=== PATIENT | female | born 1990 | race Caucasian/White ===

== ENCOUNTER 2016-12-31 10:10 | Observation (INO) | payer OTHER ==
[2016-12-31 10:17] VITALS: TEMP 97.6
[2016-12-31 11:08] LABS: BASO % 0.8 % (0.0-2.0); EOS # 0.1 K/uL (0.0-0.7); HEMATOCRIT 31.7 % (34.0-47.0); LYMPH # 0.6 K/uL (1.0-4.3); LYMPH % 18.5 % (20.0-40.0); MEAN CORPUSCULAR HEMOGLOBIN 27.8 pg (27.0-31.0); MEAN PLATELET VOLUME 7.1 fL (7.2-11.7); MONO # 0.3 K/uL (0.0-0.8); MONO % 8.5 % (0.0-10.0); RED CELL DISTRIBUTION WIDTH 14.9 % (11.5-14.5); WHITE BLOOD COUNT 3.3 K/uL (4.8-10.8)
[2016-12-31 11:19] LABS: CHLORIDE 98 mmol/L (98-107)
[2016-12-31 11:20] LABS: POTASSIUM 4.1 mmol/L (3.6-5.2); SODIUM 135 mmol/L (132-148)
[2016-12-31 11:22] LABS: ALB/GLOB RATIO 1.5 (1.0-2.1); AST/SGOT 28 U/L (14-36); BILIRUBIN,TOTAL 0.2 mg/dL (0.2-1.3); BLOOD UREA NITROGEN 3 mg/dL (7-17); CARBON DIOXIDE 26 mmol/L (22-30); GFR AFRICAN-AMERICAN > 60; TOTAL PROTEIN 7.3 g/dL (6.3-8.3)
[2016-12-31 11:23] LABS: ALKALINE PHOSPHATASE 93 U/L (38-126); ALT/SGPT 19 U/L (9-52); CALCIUM 8.8 mg/dl (8.6-10.4); GLUCOSE,RANDOM 74 mg/dL (65-105)
[2016-12-31 11:39] LABS: RBC URINE < 1 /hpf (0-3); URINE BILIRUBIN NEGATIVE (NEGATIVE); URINE BLOOD NEGATIVE (NEGATIVE); URINE COLOR Colorless (YELLOW); URINE GLUCOSE (UA) NORMAL (Normal); URINE KETONE NEGATIVE (NEGATIVE); URINE LEUKOCYTE ESTERASE NEG Leu/uL (Negative); URINE PROTEIN NEGATIVE (NEGATIVE); URINE UROBILINOGEN NORMAL mg/dL (0.2-1.0)
--- NOTE | 2016-12-31 11:58 | RAD ---
PROCEDURE: Obstructive series dated 12/31/2016 HISTORY: abd pain COMPARISON: No prior study available for comparison TECHNIQUE: Frontal view of the chest and erect/supine views of the abdomen FINDINGS: No acute infiltrate or effusion. Lung multani are clear without focal consolidation. No apparent pneumothorax. No free air seen below the hemidiaphragms. Moderate amount of stool is present throughout the colon consistent with significant constipation/ fecal retention. Minor degenerative changes of the lower lumbar spine IMPRESSION: Findings consistent with significant constipation. No acute cardiopulmonary disease.
[2016-12-31] MEDS ORDERED: Iohexol 240 (50 ml) PO ONE (12:13)
[2016-12-31] MEDS ORDERED: Iohexol 240 (50 ml) ONE (12:22)
--- NOTE | 2016-12-31 12:37 | C.PDOC ---
History Of Present Illness 26-year-old female, presents to the emergency department with complaints of constipation and abdominal pain that started two weeks ago and is associated with mild nausea. Patient was seen twice by her PMD, and given medication that she has been taking w/ minimal relief. Denies nausea/vomiting, diarrhea, fevers , chills, shortness of breath, chest pain or any other associated symptoms. No other complaints at this time. Chief Complaint (Nursing): Abdominal Pain History Per: Patient History/Exam Limitations: no limitations Past Medical History Reviewed: Historical Data, Nursing Documentation, Vital Signs Vital Signs: Last Vital Signs Temp 97.6 F 12/31/16 10:15 Pulse 58 L 12/31/16 10:15 Resp 15 12/31/16 10:15 BP 106/70 12/31/16 10:15 Pulse Ox 99 12/31/16 15:15 Family History: States: Unknown Family Hx - Social History Hx Alcohol Use: No Hx Substance Use: No - Immunization History Hx Influenza Vaccination: No Review Of Systems Except As Marked, All Systems Reviewed And Found Negative. Constitutional: Negative for: Fever, Chills Gastrointestinal: Positive for: Nausea, Abdominal Pain, Constipation. Negative for: Vomiting Musculoskeletal: Negative for: Back Pain Skin: Negative for: Rash Neurological: Negative for: Weakness, Numbness, Headache, Dizziness Physical Exam - Physical Exam Appears: Non-toxic, No Acute Distress Skin: Warm, Dry, No Rash Head: Atraumatic, Normacephalic Eye(s): bilateral: Normal Inspection, PERRL Nose: Normal Oral Mucosa: Moist Lips: Normal Appearing Neck: Normal ROM Chest: Symmetrical Respiratory: No Accessory Muscle Use Gastrointestinal/Abdominal: Soft, Tenderness (mild, left sided), No Guarding, No Rebound Extremity: Normal ROM Neurological/Psych: Oriented x3, Normal Speech ED Course And Treatment - Laboratory Results Result Diagrams: 12/31/16 10:57 12/31/16 10:57 O2 Sat by Pulse Oximetry: 99 Medical Decision Making Medical Decision Makinpm - Patient given report of CT. Patient to be discharged with Rx and will follow up with her PMD in 2 days. ED OBSERVATION Discharge: Yes - Observation admission statement Patient is being placed in observation because:: abdominal pain - Goals of Observation Goals of observation are:: diagnose and treat Disposition - Disposition Disposition Time: 15:15 Condition: GOOD - Clinical Impression Clinical Impression: Constipation - Scribe Statement The provider has reviewed the documentation as recorded by the Scribe Brenda Bergman All medical record entries made by the Raisaibe were at my direction and personally dictated by me. I have reviewed the chart and agree that the record accurately reflects my personal performance of the history, physical exam, medical decision making, and the department course for this patient. I have also personally directed, reviewed, and agree with the discharge instructions and disposition.
--- NOTE | 2016-12-31 14:57 | CT ---
PROCEDURE: CT Abdomen and Pelvis with oral and IV contrast. HISTORY: r/o obstruction COMPARISON: None available. TECHNIQUE: Contiguous axial images of the abdomen and pelvis. Oral and IV contrast was administered. Coronal and Sagittal reformats generated and reviewed. Contrast dose: 100 mL Visipaque Radiation dose: Total exam DLP = 198.49 mGy-cm. This CT exam was performed using one or more of the following dose reduction techniques: Automated exposure control, adjustment of the mA and/or kV according to patient size, and/or use of iterative reconstruction technique. FINDINGS: Paucity of intra-abdominal and intrapelvic fat limits evaluation. LOWER THORAX: No visible consolidation, pleural effusion, or pneumothorax. LIVER: Hypoattenuation of the liver compatible with hepatic steatosis. GALLBLADDER AND BILE DUCTS: Unremarkable. PANCREAS: Unremarkable. SPLEEN: Unremarkable. ADRENALS: Unremarkable. KIDNEYS AND URETERS: The kidneys enhance symmetrically. No hydronephrosis or obstructing renal calculus. BLADDER: The urinary bladder appears unremarkable. REPRODUCTIVE: Uterus is present. APPENDIX: The appendix is not definitively identified, however air in the right lower quadrant in a thin tubular configuration presumed within the appendix. No secondary signs of acute appendicitis. BOWEL: The stomach is nondistended. The bowel loops appear within normal limits of caliber without evidence of intestinal obstruction. Severe diffuse constipation. PERITONEUM: No significant free fluid. No definite free air. LYMPH NODES: No bulky lymphadenopathy identified. VASCULATURE: No aortic aneurysm. BONES: Chronic fracture deformity of the right ischium. OTHER FINDINGS: None. IMPRESSION: Severe diffuse constipation. Hepatic steatosis.
[2016-12-31 15:19] VITALS: BP 107/74; PULSE 55; RESP 13; O2SAT 100
== END 2016-12-31 15:15 | disposition home or self-care (01) ==
LOC: C.ER 10:10 → C.9OBSV 12:33
PROVIDERS: ADMIT Emergency Medicine; ATTEND Emergency Medicine
DX: K59.00 Constipation, unspecified (principal); Z68.1 Body mass index [BMI] 19.9 or less, adult
CPT/HCPCS: 74022; 74177; 80053; 81001; 83690; 84703; 85025; G0378; Q9966

== ENCOUNTER 2017-03-10 06:58 | Day surgery (SDC) | payer OTHER ==
[2017-03-10 07:24] VITALS: BMI 15.9
[2017-03-10 07:42] VITALS: O2SAT 100
--- NOTE | 2017-03-10 08:06 | CP.SDSHP ---
Same Day Surgery H & P - History Proposed Procedure: colonoscopy Pre-Op Diagnosis: Intractable constipation. Abdominal pain - Previous Medical/Surgical History Comments: no past medical history Previous Surgical History: denies - Allergies Allergies: Allergies amoxicillin Allergy (Verified 12/31/16 10:14) DIARRHEA - Physical Exam Vital Signs: Vital Signs 03/10/17 07:27 Temperature 97.1 F L Pulse Rate 53 L Respiratory 17 Rate Blood Pressure 91/60 L O2 Sat by Pulse 100 Oximetry Mental Status: Alert & Oriented x3 Neuro: WNL Heart: WNL Lungs: WNL GI: WNL - {Optional Preform as Required} Abdomen: WNL - Impression Impression: Intractable constipation. abdominal pain Pt. Evaluated Today:Candidate for Anesthesia & Procedure: Yes - Date & Time Date: 03/10/17 Time: 08:06 Short Stay Discharge - Short Stay Discharge Admitting Diagnosis/Reason for Visit: LOWER ABDOMINAL PAIN, CHANGE IN BOWEL HABIT Disposition: HOME/ ROUTINE
[2017-03-10] MEDS ORDERED: Lactated Ringer's 500 ML IV SCH (08:15)
[2017-03-10] MEDS ORDERED: Lidocaine Hydrochloride 5 ML INJ ONE (08:20)
[2017-03-10] MEDS ORDERED: Propofol 10 mg/ml Inj (20 ML) ONE (08:20)
[2017-03-10 08:44] VITALS: TEMP 97
[2017-03-10 09:16] VITALS: RESP 14
[2017-03-10 10:01] VITALS: BP 108/70; PULSE 55
== END 2017-03-10 09:59 | disposition home or self-care (01) ==
LOC: C.ENDO 06:58
PROVIDERS: ATTEND Internal Medicine Gastroenterology
DX: K59.00 Constipation, unspecified (principal); R10.30 Lower abdominal pain, unspecified; Q43.8 Other specified congenital malformations of intestine
CPT/HCPCS: 45378; 84703; J2704; J7120

== ENCOUNTER 2018-06-28 08:36 | Emergency (ER) | payer OTHER ==
[2018-06-28 08:37] VITALS: BMI 15.9
[2018-06-28 08:45] VITALS: O2SAT 100
[2018-06-28 09:20] LABS: HCG,QUALITATIVE URINE NEGATIVE (NEGATIVE)
[2018-06-28 09:25] LABS: SQUAMOUS EPITHIAL < 1 /hpf (0-5); URINE BILIRUBIN NEGATIVE (NEGATIVE); URINE BLOOD NEGATIVE (NEGATIVE); URINE CLARITY Clear (Clear); URINE COLOR Colorless (YELLOW); URINE GLUCOSE (UA) NORMAL (Normal); URINE LEUKOCYTE ESTERASE NEG Leu/uL (Negative); URINE PROTEIN NEGATIVE (NEGATIVE); URINE UROBILINOGEN NORMAL mg/dL (0.2-1.0)
--- NOTE | 2018-06-28 09:58 | C.PDOC ---
History Of Present Illness 27-year-old female, presents to the emergency department with complaints of constipation. Patient states she has been experiencing constipation for the past month, but has not had a bowel movement in two weeks. Patient notes associated nausea, and states she took Mag citrate and dulcolax at home yesyerday with no relief. She denies any vomiting, fever, chills. Patient denies a Hx of abdominal surgeries but has had a colonoscopy which showed a "tortuous colon." No other complaints at this time. Time Seen by Provider: 06/28/18 08:37 Chief Complaint (Nursing): GI Problem Past Medical History Reviewed: Historical Data, Nursing Documentation, Vital Signs Vital Signs: Last Vital Signs Temp 97.5 F L 06/28/18 08:40 Pulse 71 06/28/18 08:40 Resp 19 06/28/18 08:40 BP 104/73 06/28/18 08:40 Pulse Ox 100 06/28/18 08:40 - Medical History PMH: Hypercholesterolemia Denies: Chronic Kidney Disease Family History: States: No Known Family Hx, Unknown Family Hx - Social History Hx Alcohol Use: No Hx Substance Use: No - Immunization History Hx Tetanus Toxoid Vaccination: No Hx Influenza Vaccination: No Hx Pneumococcal Vaccination: No Review Of Systems Constitutional: Negative for: Fever, Chills Cardiovascular: Negative for: Chest Pain Respiratory: Negative for: Shortness of Breath Gastrointestinal: Positive for: Constipation. Negative for: Nausea, Vomiting, Abdominal Pain Musculoskeletal: Negative for: Back Pain Physical Exam - Physical Exam Appears: Non-toxic, No Acute Distress Skin: Normal Color, Warm, Dry, No Rash Head: Atraumatic, Normacephalic Eye(s): bilateral: Normal Inspection, PERRL, EOMI Nose: Normal Oral Mucosa: Moist Lips: Normal Appearing Neck: Normal ROM Chest: Symmetrical Cardiovascular: Rhythm Regular, No Murmur Respiratory: Normal Breath Sounds, No Accessory Muscle Use Gastrointestinal/Abdominal: Soft, No Tenderness, No Organomegaly, No Mass, Distention, No Guarding, No Rebound Back: Normal Inspection, No Paraspinal Tenderness Extremity: Normal ROM, No Deformity Neurological/Psych: Oriented x3, Normal Speech ED Course And Treatment O2 Sat by Pulse Oximetry: 100 Pulse Ox Interpretation: Normal (RA) Progress Note: Obstructive series and UA ordered and reviewed. Patient given fleet enema. Disposition Counseled Patient/Family Regarding: Studies Performed, Diagnosis, Need For Followup, Rx Given - Disposition Referrals: [facility] [Outside] Disposition: HOME/ ROUTINE Disposition Time: 10:50 Condition: STABLE Additional Instructions: FOLLOW UP WITH YOUR DOCTOR IN 1-2 DAYS DRINK PLENTY OF WATER AND INCREASE FIBER IN YOUR DIET RETURN TO ER IF SYMPTOMS WORSEN Prescriptions: Peg Electrolyte Lavage Solut [Golytely] 4,000 ml PO Q4 PRN #1 bottle PRN Reason: Constipation Phosphate Enema [Fleet Enema 135 Ml] 66 ml RC ONCE #1 nma Instructions: Constipation, Adult (DC) Forms: [employer] (Greek) Print Language: IRISH - Clinical Impression Clinical Impression: Constipation - Scribe Statement The provider has reviewed the documentation as recorded by the Scribe (Brenda Bergman) All medical record entries made by the Scribe were at my direction and personally dictated by me. I have reviewed the chart and agree that the record accurately reflects my personal performance of the history, physical exam, medical decision making, and the department course for this patient. I have also personally directed, reviewed, and agree with the discharge instructions and disposition.
--- NOTE | 2018-06-28 10:03 | RAD ---
Date of service: 2018-06-28 09:29:39 PROCEDURE: Radiographs of the chest and abdomen (obstructive series) HISTORY: ABD PAIN, CONSTIPATION COMPARISON: No prior. TECHNIQUE: AP radiograph of the chest, with upright and supine radiographs of the abdomen. FINDINGS: CHEST: Lungs: Clear. Cardiovascular: Normal size heart. No pulmonary vascular congestion. Pleura: No pleural fluid. No pneumothorax. Other findings: None. ABDOMEN AND PELVIS: Bowel: Unremarkable bowel gas pattern. No evidence of mechanical obstruction. Free air: None. Bones: Unremarkable. Other findings: None. IMPRESSION: Unremarkable radiographs of chest and abdomen. No evidence of mechanical bowel obstruction.
[2018-06-28 11:13] VITALS: BP 99/69; PULSE 67; RESP 18; TEMP 97.6
== END 2018-06-28 11:17 | disposition home or self-care (01) ==
LOC: C.ER 08:36
DX: K59.00 Constipation, unspecified (principal)

== ENCOUNTER 2019-01-22 08:13 | Emergency (ER) | payer OTHER ==
[2019-01-22 08:17] VITALS: BMI 24.7
[2019-01-22 08:21] VITALS: RESP 18
[2019-01-22] MEDS ORDERED: Naproxen 550 mg Tab PO STA (09:16)
--- NOTE | 2019-01-22 09:18 | C.PDOC ---
History Of Present Illness 28 year old female presents to the ED complaining of pain to anterior left callejas for one week. Reports she did a lot of jumping jacks last week and since then it is been hurting. States pain is worse when walking and climbing stairs. Denies any falls or trauma, numbness, weakness,. Time Seen by Provider: 01/22/19 08:34 Chief Complaint (Nursing): Lower Extremity Problem/Injury History Per: Patient History/Exam Limitations: no limitations Onset/Duration Of Symptoms: Days Current Symptoms Are (Timing): Still Present Pain Scale Rating Of: 5 Past Medical History Reviewed: Historical Data, Nursing Documentation, Vital Signs Vital Signs: Last Vital Signs Temp 98 F 01/22/19 08:17 Pulse 69 01/22/19 08:17 Resp 18 01/22/19 08:17 BP 112/73 01/22/19 08:17 Pulse Ox 98 01/22/19 08:17 Primary Care Provider: Non [facility] Provider, - Medical History PMH: Hypercholesterolemia Denies: Chronic Kidney Disease Surgical History: No Surg Hx Family History: States: No Known Family Hx - Social History Hx Alcohol Use: No Hx Substance Use: No - Immunization History Hx Tetanus Toxoid Vaccination: No Hx Influenza Vaccination: No Hx Pneumococcal Vaccination: No Review Of Systems Except As Marked, All Systems Reviewed And Found Negative. Constitutional: Negative for: Fever, Chills ENT: Negative for: Ear Pain Cardiovascular: Negative for: Chest Pain Respiratory: Negative for: Cough, Shortness of Breath Genitourinary: Negative for: Dysuria, Hematuria Musculoskeletal: Positive for: Other (left callejas pain ) Skin: Negative for: Rash Neurological: Negative for: Weakness, Numbness Physical Exam - Physical Exam Appears: Non-toxic, No Acute Distress Skin: Warm, Dry, No Rash Head: Atraumatic, Normacephalic Eye(s): bilateral: Normal Inspection Nose: Normal Oral Mucosa: Moist Neck: Normal ROM, Supple Chest: Symmetrical Cardiovascular: Rhythm Regular Respiratory: Normal Breath Sounds, No Rales, No Rhonchi, No Wheezing Back: No Vertebral Tenderness, No Paraspinal Tenderness Extremity: Normal ROM, No Tenderness, No Calf Tenderness, Capillary Refill (less than 2 sec to left callejas ), No Deformity, No Swelling Extremity: Bilateral: Atraumatic, Normal Color And Temperature, Normal ROM Pulses: Left Dorsalis Pedis: Normal, Right Dorsalis Pedis: Normal Neurological/Psych: Oriented x3, Normal Speech, Normal Motor, Normal Sensation Gait: Steady ED Course And Treatment O2 Sat by Pulse Oximetry: 98 (RA) Pulse Ox Interpretation: Normal Medical Decision Making Medical Decision Making: Plan - Naproxen 550mg PO Xray was offered to the patient but agrees that it is not required at this time as the patient has no history of fall or trauma. On reevaluation, patient is ambulatory with steady gait. Reports feeling better. Disposition - Disposition Referrals: Jaqui Bergman MD [Staff Provider] - Disposition: HOME/ ROUTINE Disposition Time: 09:18 Condition: GOOD Additional Instructions: Follow up with the Orthopedist within 1-2 weeks if symptoms persist. Return if worsened. Prescriptions: Naproxen [Naprosyn] 500 mg PO BID #20 tab Instructions: Callejas Splints Forms: [employer] (Uzbek) - Clinical Impression Clinical Impression: Callejas splint - PA / MATERIAL SPREADER / Resident Statement MD/DO has reviewed & agrees with the documentation as recorded. - Scribe Statement The provider has reviewed the documentation as recorded by the Scriblauren Morillo All medical record entries made by the Shen were at my direction and personally dictated by me. I have reviewed the chart and agree that the record accurately reflects my personal performance of the history, physical exam, medical decision making, and the department course for this patient. I have also personally directed, reviewed, and agree with the discharge instructions and disposition.
[2019-01-22] MEDS ORDERED: Naproxen 550 mg Tab PO ONE (09:21)
[2019-01-22 09:56] VITALS: BP 126/81; PULSE 82; TEMP 98.1
[2019-01-22 18:32] VITALS: O2SAT 98
== END 2019-01-22 09:56 | disposition home or self-care (01) ==
LOC: C.ER 08:13
DX: S86.892A Other injury of other muscle(s) and tendon(s) at lower leg level, left leg, initial encounter (principal); X58.XXXA Exposure to other specified factors, initial encounter

== ENCOUNTER 2019-02-01 09:11 | Emergency (ER) | payer OTHER | END 2019-02-01 11:37 | disposition home or self-care (01) | LOC: C.ER 09:11 ==